=== PATIENT | female | born 1995 | race Caucasian/White ===

== ENCOUNTER 2016-12-25 18:22 | Emergency (ER) | payer MEDICAID ==
[~2016-12-25] VITALS: Ht 170.2 cm; Wt 86.0 kg
[2016-12-25 18:54] VITALS: Ht 170.2 cm; Wt 86.0 kg
--- NOTE | 2016-12-25 20:27 | ERD ---
ER Documentation Chief Complaint Date/Time DATE: 12/25/16 TIME: 20:20 Chief Complaint slight vaginal bleeding x 1 day, states 9 weeks HPI 21-year-old female presents here in emergency department for complaints of vaginal bleeding that started today, soaked 1 pad, patient's approximate 9 weeks , 2 para 0 1. LMP 10/15/2016. Patient's complaining of pelvic pain and back pain cramping pain 4/10 scale, accompanying the vaginal bleeding. Patient denies any fever or chills. Patient denies any other vaginal discharge. She denies any nausea vomiting ROS All systems reviewed and are negative except as per history of present illness. Medications Home Meds Reported Medications [none] Unknown Strength No Conflict Check 12/25/16 Allergies Allergies: Coded Allergies: No Known Drug Allergies (Verified Allergy, Unknown, 12/25/16) PMhx/Soc Medical and Surgical Hx: pt denies Medical Hx, pt denies Surgical Hx FmHx Family History: No coronary disease, No diabetes, No other Physical Exam Vitals Vital Signs Date Time Temp Pulse Resp B/P Pulse Ox O2 Delivery O2 Flow Rate FiO2 12/25/16 18:54 99.5 80 20 139/68 99 Physical Exam GENERAL: The patient is well developed and appropriate for usual state of health, in no apparent distress. CHEST: Clear to auscultation bilaterally. There are no rales, wheezes or rhonchi. HEART: Regular rate and rhythm. No murmurs, clicks, rubs or gallops. No S3 or S4. ABDOMEN: Soft, nontender and nondistended. Good bowel sounds. No rebound or guarding. No gross peritonitis. No gross organomegaly or masses. No Mckoy sign or McBurney point tenderness. BACK: No midline or flank tenderness. EXTREMITIES: Equal pulses bilaterally. There is no peripheral clubbing, cyanosis or edema. No focal swelling or erythema. Full range of motion. Grossly neurovascularly intact. NEURO: Alert and oriented. Cranial nerves 2-12 intact. Motor strength in all 4 extremities with 5/5 strength. Sensation grossly intact. Normal speech and gait. SKIN: There is no apparent rash or petechia. The skin is warm and dry. HEMATOLOGIC AND LYMPHATIC: There is no evidence of excessive bruising or lymphedema. No gross cervical, axillary, or inguinal lymphadenopathy. VAGINAL: Small amount of blood in the vaginal vault, cervical os is closed, no cervical motion tenderness or adnexal tenderness noted. Result Diagram: 12/25/162019 Results 24 hrs Laboratory Tests Test 12/25/16 20:20 White Blood Count 7.010^3/ul Red Blood Count 4.2010^6/ul Hemoglobin 13.0g/dl Hematocrit 38.9% Mean Corpuscular Volume 92.6fl Mean Corpuscular Hemoglobin 31.0pg Mean Corpuscular Hemoglobin Concent 33.4g/dl Red Cell Distribution Width 11.9% Platelet Count 27188^3/UL Mean Platelet Volume 9.2fl Neutrophils % 53.5% Lymphocytes % 36.8% Monocytes % 8.7% Eosinophils % 0.6% Basophils % 0.1% Nucleated Red Blood Cells % 0.0/100WBC Neutrophils # 3.810^3/ul Lymphocytes # 2.610^3/ul Monocytes # 0.610^3/ul Eosinophils # 0.010^3/ul Basophils # 0.010^3/ul Nucleated Red Blood Cells # 0.010^3/ul Urine Color LT. YELLOW Urine Clarity HAZY Urine pH 6.5 Urine Specific [place] 1.015 Urine Ketones NEGATIVE Urine Nitrite NEGATIVE Urine Bilirubin NEGATIVE Urine Urobilinogen 0.2 E.U./dL Urine Leukocyte Esterase NEGATIVE Urine Microscopic RBC 10-25/HPF Urine Microscopic WBC NONE SEEN/HPF Urine Squamous Epithelial Cells FEW Urine Bacteria MANY Urine Hemoglobin 3+ Urine Glucose NEGATIVE% Urine Total Protein NEGATIVE Beta HCG, Quantitative 7768.4mIU/ml PROCEDURE: US Pelvis/OB. CLINICAL INDICATION: vaginal bleeding TECHNIQUE: Multiple sonographic images of the pelvis were obtained utilizing a transabdominal and endovaginal technique. The images were reviewed on a PACS workstation. COMPARISON: None. FINDINGS: The uterus measures 7.7 x 4.6 x 5.5 cm. There is a small cystic structure within the endometrium measuring 1.6 cm which would correspond to a calculated gestational age of 6 weeks and 2 days. No pole is visualized. There is debris and an abnormal yolk sac seen within it. The right ovary measures 4.0 x 2.4 x 2.4 cm. The left ovary was not visualized. No significant free fluid is present within the pelvis. RPTAT: AA IMPRESSION: Cystic structure within the uterus corresponding to a 6 weeks and 2 days gestation. No pole is visualized. Abnormal yolk sac and debris noted within the gestational sac. The findings are suspicious for a nonviable . Close followup ultrasound and hCG is recommended. .Dev Garg MD, MD Date Time Electronically viewed and signed by .Dev Garg MD, on 12/25/2016 21: 38 .S/ CC: KARI SANTAMARIA NP Procedures/MDM Medical Decision Making: Patients vaginal bleeding is most likely consistent of possible threatened . Patient does not show any evidence of hypovolemic shock. Patients hemoglobin and hematocrit is stable. There is low suspicion for ectopic . WHITNEY results show a approximately 6 weeks, no pole, abnormal yolk sac noted, can be indicating a nonviable . BetaHCG Quantitative is appropriate for 6 week The patient is Rh+, does not need RhoGAM this time. There is no signs of symptoms of dehydration. There is low suspicion for sepsis. Patient appears well and is hemodynamically stable. Disposition: Home. Condition: Stable Rx: Tylenol Instructions: Patient is advised to do bed rest, avoid heavy lifting, and avoid having sex until cleared by OB doctor. Patient is advised to follow up with OB doctor or here at the ER in 48 hours for reevaluation of symptoms, repeat beta HCG quantitative and ultrasound. Patient is advised that is symptoms are worst, severe bleeding, dizziness, severe abdominal pain, fever, worst signs and symptoms to return to the emergency department immediately. Departure Diagnosis: Primary Impression: Vaginal bleeding in patient at less than 20 weeks gestation Condition: Stable Patient Instructions: Bleeding During Early Additional Instructions: Patient is advised to do bed rest, avoid heavy lifting, and avoid having sex until cleared by OB doctor. Patient is advised to follow up with OB doctor or here at the ER in 48 hours for reevaluation of symptoms, repeat beta HCG quantitative and ultrasound. Patient is advised that is symptoms are worst, severe bleeding, dizziness, severe abdominal pain, fever, worst signs and symptoms to return to the emergency department immediately. KARI SANTAMARIA NP Dec 25, 2016 20:27
[2016-12-25 20:29] LABS: ADD SCAN DIFF NO
[2016-12-25 20:34] LABS: BASOPHILS % 0.1 % (0.0-2.0); EOSINOPHILS % 0.6 % (0.0-7.0); HEMATOCRIT 38.9 % (37.0-47.0); LYMPHOCYTES # 2.6 10^3/ul (0.8-2.9); LYMPHOCYTES % 36.8 % (15.0-51.0); MEAN CORPUSCULAR HGB CONC 33.4 g/dl (32.0-37.0); MEAN CORPUSCULAR VOLUME 92.6 fl (82.0-101.0); MEAN PLATELET VOLUME 9.2 fl (7.4-10.4); MONOCYTE # 0.6 10^3/ul (0.3-0.9); MONOCYTES % 8.7 % (0.0-11.0); NEUTROPHIL # 3.8 10^3/ul (1.6-7.5); NEUTROPHILS % 53.5 % (39.0-77.0); PLATELET COUNT 239 10^3/UL (140-415); RED CELL DISTRIBUTION WIDTH 11.9 % (11.5-14.5)
[2016-12-25 20:36] LABS: ADD UMIC YES; URINE BILIRUBIN (Dip) NEGATIVE (NEGATIVE); URINE BLOOD (Dip) 3+ (NEGATIVE); URINE COLOR LT. YELLOW (YELLOW); URINE GLUCOSE (Dip) NEGATIVE (NEGATIVE); URINE KETONES (Dip) NEGATIVE (NEGATIVE); URINE LEUKOCYTE ESTERASE (Dip) NEGATIVE (NEGATIVE); URINE NITRITE (Dip) NEGATIVE (NEGATIVE); URINE TOTAL PROTEIN (Dip) NEGATIVE (NEGATIVE); URINE UROBILINOGEN (Dip) 0.2 E.U./dL (0.1-1.0)
[2016-12-25 21:04] LABS: BACTERIA,URINE MANY; SQUAMOUS EPITHELIAL CELL,UR FEW
--- NOTE | 2016-12-25 21:39 | RADRPT ---
PROCEDURE: US Pelvis/OB. CLINICAL INDICATION: vaginal bleeding TECHNIQUE: Multiple sonographic images of the pelvis were obtained utilizing a transabdominal and endovaginal technique. The images were reviewed on a PACS workstation. COMPARISON: None. FINDINGS: The uterus measures 7.7 x 4.6 x 5.5 cm. There is a small cystic structure within the endometrium measuring 1.6 cm which would correspond to a calculated gestational age of 6 weeks and 2 days. No pole is visualized. There is debris and an abnormal yolk sac seen within it. The right ovary measures 4.0 x 2.4 x 2.4 cm. The left ovary was not visualized. No significant free fluid is present within the pelvis. RPTAT: AA IMPRESSION: Cystic structure within the uterus corresponding to a 6 weeks and 2 days gestation. No pole is visualized. Abnormal yolk sac and debris noted within the gestational sac. The findings are suspicious for a nonviable . Close followup ultrasound and hCG is recommended. .Dev Garg MD, MD Date Time Electronically viewed and signed by .Dev Garg MD, MD on 12/25/2016 21:38 .S/
[2016-12-25 22:12] VITALS: BP 127/60; PULSE 71; RESP 16; TEMP 98.9
== END 2016-12-25 22:13 | disposition home or self-care (01) ==
LOC: FTE 18:22
DX: O20.9 Hemorrhage in early pregnancy, unspecified (principal); R10.2 Pelvic and perineal pain; Z3A.01 Less than 8 weeks gestation of pregnancy
CPT/HCPCS: 36415; 76801; 76817; 81001; 84702; 85025; 86900; 86901; Z7502; 81003

== ENCOUNTER 2016-12-27 14:11 | Emergency (ER) | payer MEDICAID ==
[~2016-12-27] VITALS: Ht 162.6 cm; Wt 84.5 kg
[2016-12-27 14:18] VITALS: Ht 162.6 cm; Wt 84.5 kg
--- NOTE | 2016-12-27 16:58 | RADRPT ---
PROCEDURE: OB Ultrasound. CLINICAL INDICATION: Positive test. Vaginal bleeding. TECHNIQUE: Ultrasound of the pelvis was performed with transabdominal and transvaginal sonography in the axial and sagittal planes. COMPARISON: No prior study is available for comparison. FINDINGS: There is a single irregular intrauterine gestational sac. pole and yolk sac are not visualize d. Mean sac diameter is 1.41 cm. There is debris within the gestational sac. Menstrual age by ultrasound dates is 6 weeks 0 days. This indicates an expected date of delivery of 08/22/2017. The right ovary appears normal measuring 3.5 x 2.6 x 2.4 cm. The left ovary appears normal measuring 2.2 x 1.3 x 1.8 cm. Color Doppler and pulsed Doppler sonography demonstrate normal flow to the ovaries. There is no other pelvic mass or free fluid. IMPRESSION: 1. Single irregular intrauterine gestational sac containing debris indicating probable failed pregn solange. However, due to the small sac size follow-up ultrasound in 10 days is advised. 2. Otherwise unremarkable study. RPTAT: QQ .Ji Salmeron MD, MD Date Time Electronically viewed and signed by .Ji Salmeron MD, on 12/27/2016 16:58 .R/
[2016-12-27] MEDS ORDERED: HYDR-902 PO (17:08)
--- NOTE | 2016-12-27 17:10 | ERD ---
ER Documentation Chief Complaint Date/Time DATE: 12/27/16 TIME: 17:08 Chief Complaint VAG BLEED X 3 DAYS , 9 WEEKS PREG , LMP 10/18/16 HPI This is a 21-year-old female who is 9 weeks by dates and she is here for worsening vaginal bleeding. The patient was seen here 3 days ago for vaginal bleeding and had a sonogram that showed an irregular shaped sac in the uterus with probable demise. The beta hCG at that time was 7768, blood type is O +. She is here because she is having some more bleeding and cramps she is not dizzy or passing out bleeding is mild currently. She is passing occasional clots. She is here for reevaluation ROS All systems reviewed and are negative except as per history of present illness. Medications Home Meds Active Scripts Hydrocodone/Acetaminophen ([place] 10-325 Tablet) 1 Each Tablet, 1 TAB PO Q6H Y for PAIN, #20 TAB Prov:UMAIR PHILLIPS DO 12/27/16 Reported Medications [none] Unknown Strength No Conflict Check 12/25/16 Allergies Allergies: Coded Allergies: No Known Drug Allergies (Verified Allergy, Unknown, 12/25/16) PMhx/Soc Medical and Surgical Hx: pt denies Medical Hx, pt denies Surgical Hx Hx Alcohol Use: No Hx Substance Use: No Hx Tobacco Use: No FmHx Family History: No coronary disease Physical Exam Vitals Vital Signs Date Time Temp Pulse Resp B/P Pulse Ox O2 Delivery O2 Flow Rate FiO2 12/27/16 14:18 97.8 74 18 130/75 98 Physical Exam Const: Well-developed, well-nourished Head: Atraumatic, normocephalic Eyes: Normal Conjunctiva, PERRLA, EOMI, normal sclera, no nystagmus ENT: Normal External Ears, Nose and Mouth, moist mucus membranes. Neck: Full range of motion. No meningismus, no lymphadenopathy. Resp: Clear to auscultation bilaterally, no wheezing, rhonchi, rales Cardio: Regular rate and rhythm, no murmurs, S1 S2 present Abd: Soft, mild diffuse pelvic tenderness, non distended. Normal bowel sounds, no guarding or rebound, no pulsitile abdominal masses or bruits Skin: No petechiae or rashes, no ecchymosis , no maculopapular rash Back: No midline or flank tenderness Ext: No cyanosis, or edema, FROM x 4, normal inspection, neurovascularly intact x 4 Neur: Awake and alert, STR 5/5 x 4, sensation intact x 4, no focal findings, cerebellum intact Psych: Normal Mood and Affect Results 24 hrs Laboratory Tests Test 12/27/16 15:30 Beta HCG, Quantitative 6859.6mIU/ml Procedures/MDM PROCEDURE: OB Ultrasound. CLINICAL INDICATION: Positive test. Vaginal bleeding. TECHNIQUE: Ultrasound of the pelvis was performed with transabdominal and transvaginal sonography in the axial and sagittal planes. COMPARISON: No prior study is available for comparison. FINDINGS: There is a single irregular intrauterine gestational sac. pole and yolk sac are not visualized. Mean sac diameter is 1.41 cm. There is debris within the gestational sac. Menstrual age by ultrasound dates is 6 weeks 0 days. This indicates an expected date of delivery of 08/22/2017. The right ovary appears normal measuring 3.5 x 2.6 x 2.4 cm. The left ovary appears normal measuring 2.2 x 1.3 x 1.8 cm. Color Doppler and pulsed Doppler sonography demonstrate normal flow to the ovaries. There is no other pelvic mass or free fluid. IMPRESSION: 1. Single irregular intrauterine gestational sac containing debris indicating probable failed . However, due to the small sac size follow-up ultrasound in 10 days is advised. 2. Otherwise unremarkable study. RPTAT: QQ .Ji Salmeron MD, MD Date Time Electronically viewed and signed by .Ji Salmeron MD, on 12/27/2016 16:58 .R/ CC: UMAIR PHILLIPS DO HCG is lower today then a few days ago. This is consistent with an incomplete miscarriage. We will give her vaginal bleeding precautions and follow-up with gynecology for observation and/or D&C Departure Diagnosis: Primary Impression: Incomplete miscarriage Condition: Stable Patient Instructions: Missed Miscarriage Referrals: ROSA LUND MD, APOSTOLOS A. DO Dec 27, 2016 17:10
[2016-12-27 17:25] VITALS: BP 129/68; PULSE 75; RESP 18
== END 2016-12-27 17:25 | disposition home or self-care (01) ==
LOC: FTE 14:11
DX: O03.4 Incomplete spontaneous abortion without complication (principal)
CPT/HCPCS: 36415; 76801; 76817; 84702; Z7502